=== PATIENT | male | born 1960 | race Caucasian/White ===

== ENCOUNTER 2016-08-07 13:45 | Emergency (ER) | payer OTHER ==
[~2016-08-07] VITALS: Ht 162.6 cm; Wt 59.0 kg
[~2016-08-07 13:45] MED LIST: NAPROSYN375 MG PO; NORCO 5/325 MG1 TAB PO; OXYCONTIN10 MG PO
[2016-08-07 14:03] VITALS: BP 135/80
--- NOTE | 2016-08-07 15:35 | NUR ---
PATIENT TO BED 6 AT THIS TIME.
--- NOTE | 2016-08-07 15:40 | NUR ---
PATIENT PRESENTS TO ED WITH C/O OF RIGHT INDEX LACERATION . PT STATES HE WAS WASHING DISHES WHEN A GLASS CUT HIS HAND . DENIES N/V/D; SKIN IS PINK/WARM/DRY; AAOX4 WITH EVEN AND STEADY GAIT; LUNGS CLEAR BL; HR EVEN AND REGULAR; PT DENIES ANY FEVER, CP, SOB, OR COUGH AT THIS TIME; PATIENT STATES PAIN OF 9/10 AT THIS TIME; VSS; PATIENT POSITIONED FOR COMFORT; HOB ELEVATED; BEDRAILS UP X2; BED DOWN. ER MD MADE AWARE OF PT STATUS.
--- NOTE | 2016-08-07 16:00 | NUR ---
PA PRESENT AT BEDSIDE, SUTURING PT'S LACERATION
[2016-08-07] MEDS ORDERED: LIDOCAINE 1% 500 MG/50 ML VIAL INJ ONE (16:05)
--- NOTE | 2016-08-07 16:41 | NUR ---
Patient discharged with v/s stable. Written and verbal after care instructions given and explained. Patient alert, oriented and verbalized understanding of instructions. Ambulatory with steady gait. All questions addressed prior to discharge. ID band removed. Patient advised to follow up with PMD. Rx of MOTRIN AND BACTRIM given. Patient educated on indication of medication including possible reaction and side effects. Opportunity to ask questions provided and answered.
[2016-08-07 16:43] VITALS: BP 138/77
== END 2016-08-07 16:41 | disposition home or self-care (01) ==
LOC: MED 13:45
DX: S61.210A Laceration without foreign body of right index finger without damage to nail, initial encounter (principal); W45.8XXA Other foreign body or object entering through skin, initial encounter; Y93.G1 Activity, food preparation and clean up; Y92.89 Other specified places as the place of occurrence of the external cause; Y99.8 Other external cause status
CPT/HCPCS: 12001; 99283; J2001